=== PATIENT | male | born 1980 | race Caucasian/White ===

== ENCOUNTER 2022-06-12 14:56 | Oncology outpatient (recurring) (ONCR) | payer BC, SELFPAY ==
[2022-06-05 09:32] LABS: Hematocrit 54.2 % (42.0-52.0); Hemoglobin 18.3 g/dL (11.7-16.6); Mean Corpuscular HGB Conc 33.8 g/dL (30.0-36.0); Mean Corpuscular Hemoglobin 31.2 pg (28.0-34.0); Mean Corpuscular Volume 92.3 fl (80-94); Platelet Count 333 10^3/cmm (130-400); Red Blood Count 5.87 10^6/uL (4.1-5.3); White Blood Count 24.4 10^3/uL (4.0-10.0)
[2022-06-05 09:39] LABS: LAB Peripheral Smear Sent for Review
[2022-06-05 09:49] LABS: Alanine Aminotransferase 26 U/L (0-41); Albumin Level 4.6 g/dL (3.5-5.2); Alkaline Phosphatase 69 U/L (40-130); Anion Gap 17.1 (5-19); Aspartate Amino Transferase 17 U/L (0-40); Blood Urea Nitrogen 18 mg/dL (6-20); Calcium 9.7 mg/dL (8.5-10.5); Carbon Dioxide 27 mmol/L (22-29); Chloride 104 mmol/L (98-107); Glomerular Filtration Rate 92.1 mL/min (90-130); Glucose 97 mg/dL (65-115); Lactate Dehydrogenase 69 U/L (135-225); Osmolality Calculated 300 mOsm/kg (285-295); Potassium 4.1 mmol/L (3.5-5.1); Sodium 144 mmol/L (136-145); Total Bilirubin 0.4 mg/dL (0.15-1.2); Total Protein 7.6 g/dL (6.6-8.7)
[2022-06-05 10:02] LABS: Absolute Segmented Neutrophil 6.1 10/cmm (1.6-7.1); Eosinophils 0 %; Lymphocytes 5 %; Lymphocytes Absolute 18.3 10^3/cmm (1.2-3.4); Segmented Neutrophils 25 %; Total Cells Counted 100 (0-100)
[2022-06-05 10:03] LABS: Absolute Neutrophil 6.1 10^3/cmm (1.4-6.5); Giant Platelets Trace; Platelet Estimate Normal (Normal)
[2022-06-06 14:34] LABS: Leukemia Profile (BBPL) See Report; Lymphoma Profile (BBPL) See Report
== END 2022-06-19 23:59 | disposition home or self-care (01) ==
PROVIDERS: Visit Provider Internal Medicine Medical Oncology
DX: D72.820 Lymphocytosis (symptomatic) (principal)
CPT/HCPCS: 36415; 80053; 83615; 85007; 85025; 88184; 88185

== ENCOUNTER 2022-07-01 10:16 | Day surgery (SDC) | payer BC, SELFPAY ==
[2022-06-27 11:41] VITALS: BMI 29.5
--- NOTE | 2022-07-01 10:43 | ANES.PREANE2 ---
Pre-Anesthetic Assessment Height/Weight: Height 1.75 m Weight 90.718 kg Preop Diagnosis: leukemia Operation Date: 07/01/22 12:00 Proposed Procedures p Bone Marrow Biospy With Aspiration(Not Applicable) - Art Augustin MD Familial anesthetic complications: none Was Beta Rishabh taken within 24 hours: Yes Was Clonidine taken within 24 hours: Yes Last Intake: 20:00 Social No alcohol and No tobacco Exam alert, oriented x 3, clear to auscultation bilaterally and regular rate & rhythm Airway Submandibular: within normal limits Cervical ROM: within normal limits Mallampati: Class II Dentition: full Pulmonary None reported CV/HEM Hypertension None reported Hepatic None reported GI Gastroesophageal Reflux Disease (controlled) Metabolic leukemia [facility] None reported Neuropsych Anxiety, Depression, Headache and Syncope (when giving blood) Anesthetic Plan ASA status: 2 Anesthesia: MAC Risk of > 500 ml blood loss (7ml/kg in children): No Medications/Allergies Home Medications Medication Instructions Recorded Confirmed Last Taken Type buspirone 10 mg tablet 10 mg PO BID PRN Anxiety 06/05/22 06/27/22 06/27/22 History metoprolol succinate 100 mg 100 mg PO DAILY 06/05/22 06/27/22 06/27/22 History tablet,extended release 24 hr omeprazole 40 mg capsule,delayed 40 mg PO DAILY 06/05/22 06/27/22 06/27/22 History release clonidine HCl 0.1 mg tablet 0.1 mg PO DAILY PRN hypertension 06/12/22 06/27/22 Unknown History Allergies Allergy/AdvReac Type Severity Reaction Status Date / Time No Known Allergies Allergy Verified 06/27/22 11:38 [facility] Anesthesia Medical History (Updated 06/16/22 @ 10:18 by Henry Abarca MD) Anxiety Depression GERD (gastroesophageal reflux disease) Hypertension Surgical History History of wisdom tooth extraction Family History Sister Cancer Ovarian Other CAD (coronary artery disease) Dementia Diabetes Hyperlipidemia Hypertension Lung disease Stroke Denies family history of Clotting disorder Psychiatric illness Chronic kidney disease (CKD) Suicide Anesthesia complication Bleeding disorder Social History Smoking and tobacco status: former smoker Alcohol intake: never Current occupation: Employed at [employer] AT [employer] Data Anesthesia Cardiac Studies: No Data to Display
[2022-07-01 10:44] VITALS: BP 139/87; PULSE 76; RESP 18; TEMP 36.6; O2SAT 98
[2022-07-01] MEDS: sodium chloride 0.9% 1,000 ML 30 ML IV (11:00)
--- NOTE | 2022-07-01 12:20 | W.PM.OPSUD ---
Surgery/Procedure H&P Update DATE OF PROCEDURE: July 01, 2022 DATE H&P PERFORMED: 06/12/22 CHANGES TO PREVIOUS DOCUMENTATION: Patient seen and examined no obvious new symptoms or sign PREOP DIAGNOSIS: leukemia PRIMARY INDICATION FOR PROCEDURE: Chronic lymphocytic leukemia PLANNED PROCEDURE: Operation Date: 07/01/22 12:00 Proposed Procedures p Bone Marrow Biospy With Aspiration(Not Applicable) - Art Augustin MD
--- NOTE | 2022-07-01 12:40 | P.PCN_ITS ---
Bone Marrow Biopsy Bone Marrow Biopsy: I was consulted by [] office regarding bone marrow biopsy on [facility][]. Briefly, the patient is a [41] year old [male] with [CLL]. In the Outpatient Services Department, with nursing staff and laboratory technologists in attendance, the procedure was discussed with the patient. Appropriate consent form had been signed. Appropriate alternatives, benefits and risks of procedure were discussed with the patient and he was pre- operatively assessed with a history and physical by myself and cleared for the biopsy procedure. The patient did request IV sedation and that was provided by the Anesthesia Department. Under aseptic condition right posterior iliac area was cleaned and prepped, local anesthesia was given, about 15 cc of bone marrow aspiration and biopsy was obtained, patient tolerated procedure well, specimen was sent for routine histopathology, flow cytometry/cytogenetics and heme genomic testing as well as CLL prognostic profile. Postprocedure nursing instructions were given. Thank you for allowing me to participate in this patient's care and diagnosis. Coding Level of Care Code Acute Instructional Manager for Chg Fwd History Problem Focused Exam Problem Focused Medical Decision Making Straight Forward
[2022-07-01 12:41] VITALS: BP 121/77; PULSE 75; RESP 12; TEMP 36.4; O2SAT 96
[2022-07-01 12:56] VITALS: BP 109/81; PULSE 68; RESP 18; O2SAT 96
[2022-07-01 13:48] LABS: Basophils # 0.1 10^3/uL (0.0-0.1); Basophils % 0.4 %; Eosinophils # 0.1 10^3/uL (0.0-0.8); Eosinophils % 0.5 %; Hematocrit 53.3 % (42.0-52.0); Hemoglobin 18.1 g/dL (11.7-16.6); Lymphocytes # 19.9 10^3/uL (0.8-4.8); Lymphocytes % 71.8 %; Mean Corpuscular Hemoglobin 31.5 pg (28.0-34.0); Mean Corpuscular Volume 92.9 fl (80-94); Mean Platelet Volume 9.7 fL (7.4-10.4); Monocytes # 0.7 10^3/uL (0.2-0.9); Monocytes % 2.6 %; Neutrophils # 6.76 10^3/uL (1.8-7.7); Neutrophils % 24.4 %; Nucleated Red Blood Cells % 0 %; Platelet Count 312 10^3/cmm (130-400); Red Blood Count 5.74 10^6/uL (4.1-5.3); Red Cell Distribution Width 13.2 % (12.1-15.1); White Blood Count 27.7 10^3/uL (4.0-10.0)
[2022-07-01 14:06] LABS: Slide Review Slide Review Perform
--- NOTE | 2022-07-01 14:22 | ANE.PACU2 ---
Inpatient post-anesthesia follow up: Airway intact: Yes Vital signs: Temperature 97.5 F Pulse Rate 68 Respiratory Rate 18 Blood Pressure 109/81 Pulse Oximetry 96 Oxygen Delivery Me thod Room Air Oxygen Flow Rate Fraction of Inspir ed Oxygen Hydration adequate: Yes Nausea and vomiting: No Pain level: 1 Mental status: Baseline
[2022-07-03 06:48] LABS: Leukemia Profile (BBPL) See Report; Lymphoma Profile (BBPL) See Report
[2022-07-11 06:29] LABS: CLL Prognostic Panel (BBPL) See Report
[2022-07-18 07:00] LABS: Chromosome Analysis BBPL See Report
== END 2022-07-01 13:13 | disposition home or self-care (01) ==
PROVIDERS: PCP Family Medicine; Visit Provider Internal Medicine Hematology & Oncology
PROC: 07DT3ZX Extraction of Bone Marrow, Percutaneous Approach, Diagnostic (ICD-10-PCS; CPT 38222; principal; 2022-07-01 12:00)
DX: C91.10 Chronic lymphocytic leukemia of B-cell type not having achieved remission (principal); I10 Essential (primary) hypertension; K21.9 Gastro-esophageal reflux disease without esophagitis; F41.9 Anxiety disorder, unspecified; F32.A Depression, unspecified; Z87.891 Personal history of nicotine dependence
CPT/HCPCS: 38222; 81263; 82232; 85025; 88184; 88185; 88237; 88264; 88271; 88291; 88305; 88311; 88367; 88374; J2704; J3010; J7030

== ENCOUNTER 2022-07-01 15:05 | Outpatient (CLI) | payer BC, SELFPAY ==
--- NOTE | 2022-07-01 15:30 | CT_ITS ---
WS: [id number] CT CHEST, ABDOMEN, AND PELVIS TECHNIQUE: Contrast-enhanced CT of the chest, abdomen, and pelvis with coronal and sagittal reformatt ed images. CLINICAL INFORMATION: CLL - staging COMPARISON: None. DLP: 1869.[address] scans at [facility] use at least one of these dose optimization techniques: automated e xposure control; mA and/or kV adjustment per patient size (includes targeted exams where dose is matc hed to clinical indication); or iterative reconstruction. CT CHEST: Lungs are well aerated. No acute pulmonary infiltrates. No mediastinal or hilar lymphadenopathy. No s uspicious pulmonary parenchymal opacities. No axillary lymphadenopathy. Normal GE junction. Normal thoracic and lumbar spine. CT ABDOMEN AND PELVIS: Diffuse fatty infiltration liver. Portal vein and splenic vein are patent. Normal gallbladder. Normal spleen. Normal GE junction. Food products in distended stomach. Sigmoid diverticulosis. No evidence of acute diverticulitis. Normal appendix in the RIGHT lower quadr ant. Adrenal glands are normal. Normal renal parenchymal enhancement. Tiny bilateral renal cysts. Nor mal caliber abdominal aorta. Celiac and SMA are patent. Tiny fat-containing umbilical hernia. Gallbla dder appears normal. No adenopathy in the abdomen or pelvis. Bilateral fat-containing inguinal hernia s. CT/CT chest abd pel w con* IMPRESSION: 1. No adenopathy in the chest abdomen or pelvis. 2. Sigmoid diverticulosis. No evidence of acute diverticulitis. 3. No other acute findings.
[2022-07-01] MEDS: iohexol 350 mg/mL 500 mL Btl (per mL) PO (15:59)
== END 2022-07-01 15:06 | disposition home or self-care (01) ==
PROVIDERS: PCP Family Medicine; Visit Provider Internal Medicine Medical Oncology
DX: C91.10 Chronic lymphocytic leukemia of B-cell type not having achieved remission (principal)
CPT/HCPCS: 71260; 74177; Q9967

== ENCOUNTER 2022-08-02 08:00 | Oncology outpatient (recurring) (ONCR) | payer BC, SELFPAY ==
[2022-08-02 08:37] LABS: Hematocrit 52.2 % (42.0-52.0); Hemoglobin 17.4 g/dL (11.7-16.6); Mean Corpuscular HGB Conc 33.3 g/dL (30.0-36.0); Mean Corpuscular Hemoglobin 30.3 pg (28.0-34.0); Mean Corpuscular Volume 90.8 fl (80-94); Platelet Count 321 10^3/cmm (130-400); Red Blood Count 5.75 10^6/uL (4.1-5.3); Red Cell Distribution Width 12.5 % (12.1-15.1); White Blood Count 22.4 10^3/uL (4.0-10.0)
[2022-08-02 09:02] LABS: Alanine Aminotransferase 32 U/L (0-41); Albumin Level 4.6 g/dL (3.5-5.2); Alkaline Phosphatase 70 U/L (40-130); Aspartate Amino Transferase 23 U/L (0-40); Blood Urea Nitrogen 15 mg/dL (6-20); Carbon Dioxide 25 mmol/L (22-29); Chloride 105 mmol/L (98-107); Globulin 2.9 g/dL (1.3-4.6); Glomerular Filtration Rate 92.1 mL/min (90-130); Glucose 102 mg/dL (65-115); Osmolality Calculated 289 mOsm/kg (285-295); Sodium 139 mmol/L (136-145); Total Bilirubin 0.5 mg/dL (0.15-1.2); Total Protein 7.5 g/dL (6.6-8.7)
[2022-08-02 09:32] LABS: Anion Gap 13.2 (5-19); Lactate Dehydrogenase 110 U/L (135-225); Potassium 4.2 mmol/L (3.5-5.1)
[2022-08-02 09:49] LABS: Absolute Neutrophil 6.3 10^3/cmm (1.4-6.5); Absolute Segmented Neutrophil 6.3 10/cmm (1.6-7.1); Eosinophils 0 %; Lymphocytes 55 %; Lymphocytes Absolute 15.2 10^3/cmm (1.2-3.4); Monocytes Absolute 0.9 10^3/cmm (0.1-0.6); Platelet Estimate Normal (Normal); Segmented Neutrophils 28 %; Total Cells Counted 100 (0-100)
== END 2022-08-20 23:59 | disposition home or self-care (01) ==
PROVIDERS: PCP Family Medicine; Visit Provider Internal Medicine Medical Oncology
DX: C91.10 Chronic lymphocytic leukemia of B-cell type not having achieved remission (principal)
CPT/HCPCS: 36415; 80053; 83615; 85007; 85025

== ENCOUNTER 2023-02-03 15:46 | Oncology outpatient (recurring) (ONCR) | payer BC, SELFPAY | END 2023-02-17 23:59 | disposition home or self-care (01) | PROVIDERS: PCP Family Medicine; Visit Provider Internal Medicine Medical Oncology | DX: Z53.9 Procedure and treatment not carried out, unspecified reason ==

== ENCOUNTER 2024-08-18 15:31 | Oncology outpatient (recurring) (ONCR) | payer BC, SELFPAY ==
[2024-08-18 15:46] LABS: Basophils # 0.2 10^3/uL (0.0-0.1); Basophils % 0.4 %; Eosinophils # 0.2 10^3/uL (0.0-0.8); Eosinophils % 0.5 %; Hematocrit 50.1 % (37-53); Lymphocytes % 82.8 %; Mean Corpuscular HGB Conc 35.1 g/dL (30-55); Mean Corpuscular Hemoglobin 31.2 pg (27-33); Mean Corpuscular Volume 88.7 fl (82-101); Mean Platelet Volume 9.3 fL (7.4-10.4); Monocytes % 2.1 %; Neutrophils # 6.58 10^3/uL (1.8-7.7); Neutrophils % 13.9 %; Nucleated Red Blood Cells % 0 %; Platelet Count 324 10^3/cmm (157-399); Red Blood Count 5.65 10^6/uL (3.85-5.65); Red Cell Distribution Width 12.4 % (12.1-15.1)
[2024-08-18 16:00] LABS: Albumin Level 4.5 g/dL (3.5-5.2); Alkaline Phosphatase 84 U/L (40-130); Blood Urea Nitrogen 14 mg/dL (6-20); Calcium 9.3 mg/dL (8.5-10.5); Carbon Dioxide 24 mmol/L (22-29); Chloride 102 mmol/L (98-107); Globulin 2.9 g/dL (1.3-4.6); Glomerular Filtration Rate 90.8 mL/min (90-130); Glucose 88 mg/dL (65-115); Osmolality Calculated 286 mOsm/kg (285-295); Sodium 138 mmol/L (136-145); Total Bilirubin 0.3 mg/dL (0.15-1.2); Total Protein 7.4 g/dL (6.6-8.7)
[2024-08-18 16:11] LABS: White Blood Count 47.13 10^3/uL (3.29-11.43)
[2024-08-18 16:22] LABS: Alanine Aminotransferase 48 U/L (0-41); Anion Gap 16.6 (5-19); Aspartate Amino Transferase 38 U/L (0-40); Lactate Dehydrogenase 216 U/L (135-225); Potassium 4.6 mmol/L (3.5-5.1)
[2024-08-18 16:36] LABS: Slide Review Slide Review Perform
== END 2024-08-20 23:59 | disposition home or self-care (01) ==
PROVIDERS: Nurse Practitioner Family; PCP Family Medicine; Visit Provider Internal Medicine
DX: Z53.9 Procedure and treatment not carried out, unspecified reason (principal); C91.10 Chronic lymphocytic leukemia of B-cell type not having achieved remission
CPT/HCPCS: 36415; 80053; 83615; 85025

== ENCOUNTER 2025-03-24 15:21 | Oncology outpatient (recurring) (ONCR) | payer BC, SELFPAY | END 2025-04-19 23:59 | disposition home or self-care (01) | LOC: ONCMED 15:21 | PROVIDERS: PCP Family Medicine; Visit Provider Internal Medicine | DX: Z53.9 Procedure and treatment not carried out, unspecified reason (principal) ==